=== PATIENT | female | born 1970 | race Caucasian/White ===

== ENCOUNTER 2018-11-04 08:30 | Day surgery (SDC) | payer OTHER ==
[2018-11-04] MEDS ORDERED: PROPOFOL INJ 200 MG/20 ML VIAL IV ONE (09:10)
[2018-11-04] MEDS ORDERED: LIDOCAINE 2% INJ-PF (20 MG/ML) 10 ML AMPUL ONE (10:06)
[2018-11-04] MEDS ORDERED: PROMETHAZINE HCL INJ 25 MG/1 ML VIAL IV PRN (10:50)
[2018-11-04] MEDS ORDERED: ONDANSETRON HCL INJ/PF 4 MG/2 ML SDV IV PRN (10:50)
[2018-11-04] MEDS ORDERED: DIPHENHYDRAMINE HCL 50 MG/ML VIAL IV PRN (10:50)
--- NOTE | 2018-11-04 11:51 | Operative Report ---
Operative Report DATE OF SURGERY: 11/04/18 Operative Report: The risks benefits and alternatives of the procedure explained to the patient in detail and informed consent is obtained.A GIF Olympus video scope was inserted into the patient's mouth and hypopharynx, the esophagus is identified intubated and insufflated, the scope was then advanced through the esophagus stomach and duodenum ,retroflexion maneuver is done, the esophagus stomach and first and second portions of the duodenum examined. PREOPERATIVE DIAGNOSIS: Gastroesophageal reflux disease, abdominal bloating POSTOPERATIVE DIAGNOSIS: Gastritis status post biopsy for Helicobacter pylori OPERATION: EGD with biopsy SURGEON: TIP KRAFT ANESTHESIA: LMAC TISSUE REMOVED OR ALTERED: As noted above COMPLICATIONS: None. ESTIMATED BLOOD LOSS: None. INTRAOPERATIVE FINDINGS: As noted above PROCEDURE: Patient tolerated the procedure well. No immediate postprocedure complications are noted. Patient is discharged in good condition. Discharge date 11/04/2018. Discharge diet: Regular. Discharge activity: Regular. 2 to 3-week follow-up to discuss findings. Patient is instructed to call the office or proceed to the emergency room should there be any further problems or questions. Wait on the pathology.
[2018-11-04 12:21] VITALS: BP 101/60
== END 2018-11-04 11:55 | disposition home or self-care (01) ==
LOC: OROUT 08:30
PROVIDERS: ATTEND Internal Medicine Gastroenterology
DX: K21.0 Gastro-esophageal reflux disease with esophagitis (principal); K29.50 Unspecified chronic gastritis without bleeding; E06.3 Autoimmune thyroiditis; F17.200 Nicotine dependence, unspecified, uncomplicated
CPT/HCPCS: 43239; 82962; 81025; 88305 ×2; 00731; J2704; J3490; 731

== ENCOUNTER 2018-11-29 15:32 | Emergency (ER) | payer OTHER ==
[2018-11-29 15:39] VITALS: BP 97/65
[2018-11-29] MEDS ORDERED: PHENAZOPYRIDINE HCL 200 MG TABLET PO ONE (15:53)
--- NOTE | 2018-11-29 15:54 | ER Document Report ---
ED Medical Screen (RME) - General Chief Complaint: Urinary Frequency Stated Complaint: URINARY PROBLEM Time Seen by Provider: 11/29/18 15:51 Primary Care Provider: CHELO PEDRO DO [Primary Care Provider] - Follow up as needed Mode of Arrival: Ambulatory Information source: Patient Notes: This 48-year-old female presents emergency department with complaints of urinary frequency pain with void and hematuria started yesterday. Denies fever vomiting diarrhea. Also has slight right flank pain. Reports she is had a history of UTIs in the past that have turned into kidney infections. I have greeted and performed a rapid initial assessment of this patient. A comprehensive ED assessment and evaluation of the patient, analysis of test results and completion of the medical decision making process will be conducted by additional ED providers. Dictation of this chart was performed using voice recognition software; therefore, there may be some unintended grammatical errors. TRAVEL OUTSIDE OF THE [place] IN LAST 30 DAYS: No - Related Data Allergies/Adverse Reactions: No Known Allergies Allergy (Verified 11/29/18 15:51) Past Medical History - Past Medical History Cardiac Medical History: Denies: Hx Coronary Artery Disease, Hx Heart Attack, Hx Hypertension - STRONG FAMILY HX OF CAD ON PO MEDS FOR PREVENTION Pulmonary Medical History: Denies: Hx Asthma, Hx Bronchitis, Hx COPD, Hx Pneumonia Neurological Medical History: Denies: Hx Cerebrovascular Accident, Hx Seizures Renal/ Medical History: Reports: Hx Ovarian Cysts - yrs ago. Denies: Hx Kidney Stones, Hx Pelvic Inflammatory Disease Malignancy Medical History: Denies: Hx Breast Cancer, Hx Cervical Cancer, Hx Ovarian Cancer GI Medical History: Reports: Hx Gastroesophageal Reflux Disease - preg only. Denies: Hx Hiatal Hernia, Hx Ulcer Musculoskeltal Medical History: Denies Hx Arthritis Psychiatric Medical History: Denies: Hx Bipolar Disorder, Hx Depression, Hx Post Traumatic Stress Disorder, Hx Schizophrenia Infectious Medical History: Denies: Hx HIV Past Surgical History: Denies: Hx Hysterectomy, Hx Pacemaker - Immunizations Hx Diphtheria, Pertussis, Tetanus Vaccination: Yes Physical Exam - Vital signs Vitals: Temp Pulse Resp BP Pulse Ox 98.2 F 84 16 97/65 L 96 11/29/18 15:37 11/29/18 15:37 11/29/18 15:37 11/29/18 15:37 11/29/18 15:37 Course - Vital Signs Vital signs: Temp Pulse Resp BP Pulse Ox 98.2 F 84 16 97/65 L 96 11/29/18 15:37 11/29/18 15:37 11/29/18 15:37 11/29/18 15:37 11/29/18 15:37 Doctor's Discharge - Discharge Referrals: CHELO PEDRO DO [Primary Care Provider] - Follow up as needed
[2018-11-29 16:21] LABS: APPEARANCE,URINE CLOUDY; BILIRUBIN,URINE NEGATIVE (NEGATIVE); COLOR,URINE AMBER; GLUCOSE, URINE NEGATIVE (NEGATIVE); KETONES,URINE NEGATIVE (NEGATIVE); LEUKOCYTE ESTERASE,URINE MODERATE (NEGATIVE); NITRITE,URINE NEGATIVE (NEGATIVE); PROTEIN,URINE 100 mg/dL (NEGATIVE); URINE SPECIFIC GRAVITY 1.017; UROBILINOGEN,URINE NEGATIVE mg/dL (<2.0)
--- NOTE | 2018-11-29 17:23 | ER Document Report ---
HPI - HPI Time Seen by Provider: 11/29/18 15:51 Pain Level: 2 Context: Patient is a 48-year-old female who presents to the emergency department with a chief complaint of dysuria and hematuria. Her symptoms started yesterday. Patient denies any back pain, fever, nausea, vomiting, or diarrhea. She has history of UTIs with kidney infections in the past. She states that it does not feel as bad as last time when she was diagnosed with a kidney infection. - CONSTITUTIONAL Constitutional: DENIES: Fever, Chills - NEURO Neurology: DENIES: Headache - RESPIRATORY Respiratory: DENIES: Trouble Breathing, Coughing - GASTROINTESTINAL Gastrointestinal: DENIES: Abdominal Pain, Nausea, Patient vomiting, Diarrhea - URINARY Urinary: REPORTS: Dysuria Notes: hematuria - REPRODUCTIVE Reproductive: DENIES: : - MUSCULOSKELETAL Musculoskeletal: DENIES: Back Pain - DERM Skin Color: Normal Skin Problems: None Past Medical History - General Information source: Patient - Social History Smoking Status: Never Smoker Chew tobacco use (# tins/day): No Frequency of alcohol use: None Drug Abuse: None Family History: Reviewed & Not Pertinent Patient has suicidal ideation: No Patient has homicidal ideation: No - Past Medical History Cardiac Medical History: Denies: Hx Coronary Artery Disease, Hx Heart Attack, Hx Hypertension - STRONG FAMILY HX OF CAD ON PO MEDS FOR PREVENTION Pulmonary Medical History: Denies: Hx Asthma, Hx Bronchitis, Hx COPD, Hx Pneumonia Neurological Medical History: Denies: Hx Cerebrovascular Accident, Hx Seizures Renal/ Medical History: Reports: Hx Ovarian Cysts - yrs ago. Denies: Hx Kidney Stones, Hx Pelvic Inflammatory Disease Malignancy Medical History: Denies: Hx Breast Cancer, Hx Cervical Cancer, Hx Ovarian Cancer GI Medical History: Reports: Hx Gastroesophageal Reflux Disease - preg only. Denies: Hx Hiatal Hernia, Hx Ulcer Musculoskeletal Medical History: Denies Hx Arthritis Psychiatric Medical History: Denies: Hx Bipolar Disorder, Hx Depression, Hx Post Traumatic Stress Disorder, Hx Schizophrenia Infectious Medical History: Denies: Hx HIV Past Surgical History: Denies: Hx Hysterectomy, Hx Pacemaker - Immunizations Hx Diphtheria, Pertussis, Tetanus Vaccination: Yes Vertical Provider Document - CONSTITUTIONAL Agree With Documented VS: Yes Exam Limitations: No Limitations General Appearance: No Apparent Distress - INFECTION CONTROL TRAVEL OUTSIDE OF THE [place] IN LAST 30 DAYS: No - HEENT HEENT: Atraumatic, Normocephalic, PERRLA - NECK Neck: Normal Inspection - RESPIRATORY Respiratory: Breath Sounds Normal, No Respiratory Distress - CARDIOVASCULAR Cardiovascular: Regular Rate, Regular Rhythm Pulses: Normal: Radial - GI/ABDOMEN Gastrointestinal: Abdomen Soft, Abdomen Non-Tender - BACK Back: Normal Inspection. negative: CVA Tenderness-Right, CVA Tenderness-Left - MUSCULOSKELETAL/EXTREMETIES Musculoskeletal/Extremeties: FROM - NEURO Level of Consciousness: Awake, Alert, Appropriate Motor/Sensory: No Motor Deficit, No Sensory Deficit - DERM Integumentary: Warm, Dry, No Rash Course - Re-evaluation Re-evalutation: 11/29/18 17:23 Patient presents with symptoms consistent with an acute cystitis. Vitals wnl. No history of fever, flank pain, or constitution symptoms to suggest ascending infection at this time. Patient is well in appearance, tolerating oral intake w ithout difficulty. No focal abdominal tenderness to suggest acute appendicitis, biliary pathology, acute pancreatitis, tubo-ovarian abscesses, or pelvic inflammatory disease. Patient will be started on antibiotics at this time. A culture has been sent. They will be discharged with return precautions and follow-up recommendations. - Vital Signs Vital signs: Temp Pulse Resp BP Pulse Ox 98.2 F 84 16 97/65 L 96 11/29/18 15:37 11/29/18 15:37 11/29/18 15:37 11/29/18 15:37 11/29/18 15:37 - Laboratory Laboratory results interpreted by me: 11/29/18 16:05 Urine Protein 100 H Urine Blood LARGE H Ur Leukocyte Esterase MODERATE H Discharge - Discharge Clinical Impression: Urinary tract infection Qualifiers: Urinary tract infection type: acute cystitis Hematuria presence: with hematuria Qualified Code(s): N30.01 - Acute cystitis with hematuria Condition: Stable Disposition: HOME, SELF-CARE Instructions: Cephalexin ([facility]), Urinary Tract Infection ([facility]) Additional Instructions: Your urine shows findings consistent with a urinary tract infection. Please take all the antibiotics as directed even if your symptoms have improved. Please follow-up with your primary care physician as needed. Return to emergency room if you develop fever >101F, persistent vomiting, become lethargic, have severe pain in your sides, or any other symptoms that are concerning to you. Referrals: CHELO PEDRO, [NO LOCAL MD] - Follow up as needed
== END 2018-11-29 17:29 | disposition home or self-care (01) ==
LOC: ER 15:32
DX: N30.01 Acute cystitis with hematuria (principal); R30.0 Dysuria
CPT/HCPCS: 99283; 87086; 81025; 87088; 81001; 87186; J3490

== ENCOUNTER 2019-05-09 07:09 | Emergency (ER) | payer OTHER ==
--- NOTE | 2019-05-09 08:20 | ER Document Report ---
ED ENT - General Chief Complaint: Sinus Pain Stated Complaint: SINUS PAIN Time Seen by Provider: 05/09/19 07:37 Mode of Arrival: Ambulatory Information source: Patient Notes: 49-year-old woman presents to the emergency department with complaint of sinus pain and pressure for the past 3 to 4 days. She describes upper respiratory symptoms prior to the onset of her sinus complaints. She has had a history of sinus infections in the past and believes that she is having a recurrent flareup. Denies fever, however complains of headache, sinus pressure, nasal drainage which is muco-purulent at times. She denies cough, sore throat, and complains of bilateral ear fullness with occasional dizzy episodes. TRAVEL OUTSIDE OF THE [place] IN LAST 30 DAYS: No - Related Data Allergies/Adverse Reactions: No Known Allergies Allergy (Verified 11/29/18 15:51) Past Medical History - Social History Smoking Status: Never Smoker Chew tobacco use (# tins/day): No Frequency of alcohol use: None Drug Abuse: None Family History: Reviewed & Not Pertinent Patient has suicidal ideation: No Patient has homicidal ideation: No - Past Medical History Cardiac Medical History: Denies: Hx Coronary Artery Disease, Hx Heart Attack Comment Only: Hx Hypertension - STRONG FAMILY HX OF CAD ON PO MEDS FOR PREVENTION Pulmonary Medical History: Denies: Hx Asthma, Hx Bronchitis, Hx COPD, Hx Pneumonia Neurological Medical History: Denies: Hx Cerebrovascular Accident, Hx Seizures Renal/ Medical History: Reports: Hx Ovarian Cysts - yrs ago. Denies: Hx Kidney Stones, Hx Peritoneal Dialysis, Hx Pelvic Inflammatory Disease Malignancy Medical History: Denies: Hx Breast Cancer, Hx Cervical Cancer, Hx Ovarian Cancer GI Medical History: Reports: Hx Gastroesophageal Reflux Disease - preg only. Denies: Hx Hiatal Hernia, Hx Ulcer Musculoskeletal Medical History: Denies Hx Arthritis Psychiatric Medical History: Denies: Hx Bipolar Disorder, Hx Depression, Hx Post Traumatic Stress Disorder, Hx Schizophrenia Infectious Medical History: Denies: Hx HIV Past Surgical History: Denies: Hx Hysterectomy, Hx Pacemaker - Immunizations Hx Diphtheria, Pertussis, Tetanus Vaccination: Yes Review of Systems - Review of Systems Notes: Constitutional: Negative for fever. HENT: + Sinus congestion, + ear fullness, negative for sore throat. Eyes: Negative for visual changes. Cardiovascular: Negative for chest pain. Respiratory: Negative for shortness of breath. Gastrointestinal: Negative for abdominal pain, vomiting or diarrhea. Genitourinary: Negative for dysuria. Musculoskeletal: Negative for back pain. Skin: Negative for rash. Neurological: + Dizzy episodes, + headaches, weakness or numbness. 10 point ROS negative except as marked above and in HPI. Physical Exam - Vital signs Vitals: Temp Pulse Resp BP Pulse Ox 98.1 F 74 18 104/59 L 97 05/09/19 07:15 05/09/19 07:15 05/09/19 07:15 05/09/19 07:15 05/09/19 07:15 - Notes Notes: PHYSICAL EXAMINATION: Physical Exam: General: Well-nourished well-developed 49-year-old female in no acute distress HEENT: NC/AT, pupils equal round and reactive to light, MM moist,nares clear, oropharynx clear, airway patent, TMs with dullness bilateral, maxillary sinus nontender, frontal sinus nontender Neck: supple, no adenopathy, no masses. Good range of motion Lungs: clear, no wheezing, no rales no rhonchi CVS: Regular rate and rhythm no murmur gallop or rub Abdomen: Soft, active, nontender, no masses, no hepatosplenomegaly Ext: No edema, clubbing or cyanosis. Neuro: Alert and responsive, moving all 4 extremities on command, cranial nerves intact, no focal findings Skin: Intact no open lesions, no rash PSYCH: Normal mood, normal affect. Course - Re-evaluation Re-evalutation: 05/09/19 08:17 Patient presents with acute sinus symptoms history of same. Will treat with course of antibiotics and steroid oral with encouragement to use Coricidin HBP for congestion. Also encouraged the patient to follow-up with her doctor if her symptoms are not improving. - Vital Signs Vital signs: Temp Pulse Resp BP Pulse Ox 98.1 F 74 18 104/59 L 97 05/09/19 07:15 05/09/19 07:15 05/09/19 07:15 05/09/19 07:15 05/09/19 07:15 Discharge - Discharge Clinical Impression: Acute sinusitis Qualifiers: Sinusitis location: unspecified location Recurrence: not specified as recurrent Qualified Code(s): J01.90 - Acute sinusitis, unspecified Headache Qualifiers: Headache type: unspecified Headache chronicity pattern: unspecified pattern Intractability: not intractable Qualified Code(s): R51 - Headache Condition: Good Disposition: HOME, SELF-CARE Additional Instructions: Please take the medications as prescribed prednisone 20 mg twice daily x3 days, Zithromax (Z-Greg) 250 mg tablets 5-day course. Use Coricidin HBP for congestion. HOME CARE INSTRUCTIONS & INFORMATION: Thank you for choosing us for your medical needs. We hope you're satisfied with the care you received. After you leave, you must properly care for your problem and, at the same time, observe its progress. Any condition can change. Some illnesses can change rapidly over hours or days. If your condition worsens, return to the Emergency Department or see your physician promptly. ABOUT YOUR X-RAYS AND EKG'S: If you had an EKG or X-rays taken, they have been read by the Emergency Physician. The X-rays and EKG's will also be read by a Radiologist or Barrel Painter within 24 hours. If discrepancies are noted, you will be notified by telephone. Please be certain the ED has a correct telephone number & address where you can be reached. Also, realize that some fractures or abnormalities do not show up on initial X-rays. If your symptoms continue, see your physician. ABOUT YOUR LABORATORY TEST: If you had laboratory tests, the results have been reviewed by the Emergency Physician. Some test results (for example cultures) may not be available for several days. You will be contacted if any test result shows you need additional treatment. Please be certain the ED has a correct telephone number and address where you can be reached. ABOUT YOUR MEDICATIONS: You will receive instructions on how to take your medicine on the prescription label you receive. Additional information may be provided by the Pharmacy. If you have questions afterwards, call the ED for clarification or further instructions. Some prescribed medications may cause drowsiness. Do not perform tasks such as driving a car or operating machinery without consulting your Pharmacist. If you feel you need a refill of pain medication, your condition will need re-evaluation. Please do not call for a refill of any medication. ABOUT YOUR SIGNATURE: Signature of this document acknowledges to followin. Understanding that you received emergency treatment and that you may be released before al medical problems are known or treated. Please be certain the ED has a correct phone number & address where you can be reached. 2. Acknowledgement that you will arrange for follow-up care as recommended. 3. Authorization for the Emergency Physician to provide information to your follow-up Physician in order to maximize your care. AT ANY TIME, IF YOUR SYMPTOMS CHANGE SIGNIFICANTLY OR WORSEN OR YOU DEVELOP NEW SYMPTOMS, RETURN TO THE EMERGENCY DEPARTMENT IMMEDIATELY FOR RE-EVALUATION. OUR GOAL IS TO PROVIDE EXCELLENT MEDICAL CARE! WE HOPE THAT WE HAVE MET YOUR EXPECTATIONS DURING YOUR EMERGENCY DEPARTMENT VISIT AND THAT YOU FEEL YOU HAVE RECEIVED EXCELLENT CARE! Prescriptions: Prednisone [Deltasone 20 mg Tablet] 1 tab PO BID 5 Days #6 tablet Azithromycin [Zithromax 250 mg Tablet] 250 mg PO ASDIR PRN #6 tablet PRN Reason: Forms: Return to Work
[2019-05-09 08:33] VITALS: BP 101/64
== END 2019-05-09 08:59 | disposition home or self-care (01) ==
LOC: ER 07:09
DX: J01.90 Acute sinusitis, unspecified (principal); R51 Headache; R09.89 Other specified symptoms and signs involving the circulatory and respiratory systems; R42 Dizziness and giddiness; R53.1 Weakness; R20.0 Anesthesia of skin
CPT/HCPCS: 99283